=== PATIENT | female | born 1970 | race Caucasian/White ===

== ENCOUNTER 2017-11-12 12:27 | Outpatient (CLI) | payer OTHER ==
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
== END 2017-11-12 12:28 | disposition home or self-care (01) ==
LOC: CT 12:27
PROVIDERS: ATTEND Neurological Surgery
DX: S06.6X0A Traumatic subarachnoid hemorrhage without loss of consciousness, initial encounter (principal)
CPT/HCPCS: 70450

== ENCOUNTER 2018-01-14 13:16 | Outpatient (CLI) | payer OTHER ==
--- NOTE | 2018-01-14 13:55 | CT ---
CT HEAD NONCONTRAST: History: Headache. CSF leak. Comparison: 11-12-17 FINDINGS: There is no evidence of acute intracranial hemorrhage or infarct. Ventricles appear normal in size, s hape, and position. There is no mass effect or shift of midline structures. Visualized paranasal sinu ses remain well aerated. No minimal fluid dependent portion left sphenoid sinus cell. No fluid is daryl arent within the middle ear cavities or nasal passage. IMPRESSION: No acute intracranial abnormalities are demonstrated. POS: [facility]
== END 2018-01-14 13:17 | disposition home or self-care (01) ==
LOC: TBSIIMAG 13:16
PROVIDERS: ATTEND Neurological Surgery
DX: S06.6X0A Traumatic subarachnoid hemorrhage without loss of consciousness, initial encounter (principal)
CPT/HCPCS: 70450

== ENCOUNTER 2018-02-24 09:02 | Day surgery (SDC) | payer OTHER ==
[2018-02-21 12:21] VITALS: BMI 21.7
[2018-02-24] MEDS ORDERED: Iopamidol-M 300 61% 15 ML VIAL ONE (10:08)
[2018-02-24 10:09] VITALS: BP 127/68; TEMP 98.1
--- NOTE | 2018-02-24 12:26 | RAD ---
FLUOROSCOPIC GUIDED CERVICAL SPINE MYELOGRAM/CISTERNOGRAM: INDICATION: Cervical radiculopathy. PROCEDURE: After informed consent had been obtained, the patient was escorted to the interventional suite and pl aced on the procedural table. [employer] imaging was performed. The patient was placed into a prone posi tion. Skin on the low back was then prepped and draped in the standard sterile fashion and topical a nd regional soft tissue anesthesia was achieved with 1% lidocaine and sodium bicarbonate. L3-4, left interlaminar approach was selected, and a 22 gauge needle was uneventfully advanced into the thecal s ac with clear color CSF. Subsequently, 10 mL Isovue-300 was instilled into the thecal sac under real time fluoroscopy. Appropriate opacification of thecal sac demonstrated with imaging stored for [facility]. The needle was then removed from the patient. The patient tolerated the procedure well an d was then transferred to CT to undergo subsequent CT cisternogram imaging. Reference separate repor t for full details. Radiation Exposure Data: 0.3 minutes intermittent fluoroscopy. 23 mGy*cm^2. IMPRESSION: Technically successful fluoroscopic guided cisternogram as detailed above. POS: [facility]
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
== END 2018-02-24 12:30 | disposition home or self-care (01) ==
LOC: CT 09:02
PROVIDERS: ATTEND Neurological Surgery
PROC: B01B1ZZ Fluoroscopy of Spinal Cord using Low Osmolar Contrast (ICD-10-PCS; principal; 2018-02-24)
DX: S02.119A Unspecified fracture of occiput, initial encounter for closed fracture (principal); Z79.899 Other long term (current) drug therapy
CPT/HCPCS: 62302; 70460